=== PATIENT | male | born 1955 | race Caucasian/White ===

== ENCOUNTER 2020-06-02 09:19 | Inpatient (IN) ==
[2020-06-02] MEDS ORDERED: CeFAZolin Syr 2,000MG/20 ML 2,000 MG/20 ML SYRINGE IVPB ONE (09:55)
[2020-06-02] MEDS ORDERED: *HR* Succinylcholine 200 MG/10 ML VIAL IVP ONE (09:59)
[2020-06-02] MEDS ORDERED: Ondansetron 4 MG/2 ML VIAL ONE (09:59)
[2020-06-02] MEDS ORDERED: Lidocaine -MPF 2% 2 ML VIAL ONE (09:59)
[2020-06-02] MEDS ORDERED: *HR* Propofol 200 MG/20 ML VIAL IVP ONE (10:00)
[2020-06-02] MEDS ORDERED: Ringers Solution, Lactated 1,000 ML IVC SCH (10:00)
[2020-06-02] MEDS ORDERED: *HR* Midazolam HCl 2 MG/2 ML VIAL ONE (10:00)
[2020-06-02] MEDS ORDERED: Lidocaine HCL 4 ML Topical Solution (Laryng-O-Jet Kit Sterile Pak) TP ONE (10:00)
[2020-06-02] MEDS ORDERED: *HR* FentaNYL (PF) 100 MCG/2 ML VIAL ONE (10:00)
[2020-06-02] MEDS ORDERED: *HR* HYDROmorphone PF 0.5 MG/0.5 ML SYRINGE IVP PRN (10:03)
[2020-06-02] MEDS ORDERED: Ondansetron 4 MG/2 ML VIAL IVP PRN ×2 (10:03→19:34)
[2020-06-02] MEDS ORDERED: *HR* OxyCODONE Immed Rel 5 MG TABLET PO PRN ×3 (10:03→19:34)
[2020-06-02] MEDS ORDERED: Promethazine 6.25 MG in Water for inj. (sterile) 20 ML IVPB PRN (10:03)
[2020-06-02] MEDS ORDERED: *HR* Remifentanil 2 MG VIAL IVP ONE (10:07)
[2020-06-02] MEDS ORDERED: *HR* Heparin 5,000 UNIT/ML VIAL ONE ×2 (10:08→15:48)
[2020-06-02] MEDS ORDERED: Famotidine 20 MG/2 ML VIAL IVP ONE (10:29)
[2020-06-02] MEDS ORDERED: ceFAZolin 1,000 MG, Sodium Chloride IRRigation 1,000 ML IR ONE (11:20)
[2020-06-02] MEDS ORDERED: Heparin 1,000 UNITS/500 mL 1,500 ML ONE ×2 (12:22→13:45)
[2020-06-02] MEDS ORDERED: Isovue-300 50ML VIAL ONE ×2 (12:50→17:06)
[2020-06-02] MEDS ORDERED: Heparin 1,000 UNITS/500 mL 500 ML ONE ×3 (13:32→17:06)
[2020-06-02] MEDS ORDERED: EPHEDrine 50 MG/ML VIAL ONE (14:51)
[2020-06-02] MEDS ORDERED: *HR* Phenylephrine 10 MG/ML VIAL ONE (15:27)
[2020-06-02] MEDS ORDERED: *HR* Remifentanil 1 MG VIAL IVP ONE (15:51)
[2020-06-02] MEDS ORDERED: *HR* HYDROcodone/Acet 5/325 mg TABLET PO PRN (19:34)
[2020-06-02] MEDS ORDERED: Acetaminophen 325 MG TABLET PO PRN (19:34)
[2020-06-02] MEDS ORDERED: Naloxone 0.4 MG/ML INJ IVP PRN (19:34)
[2020-06-02] MEDS ORDERED: *HR* Labetalol 20 MG/4 ML SYRINGE IVP PRN (19:34)
[2020-06-02] MEDS: CeFAZolin 2 GM/120 ML BAG IVPB SCH (23:24)
[2020-06-03 01:26] LABS: Basophils % 0.2 %; Hematocrit 38.6 % (37.5-50.1); Immature Granulocytes % 0.2 % (0-4); Lymphocytes # 0.9 K/mcL (0.6-4.6); Lymphocytes % 7.3 %; Mean Corpuscular HGB Conc 35.2 g/dL (31.6-35.5); Mean Corpuscular Hemoglobin 33.7 pg (28.0-33.3); Mean Corpuscular Volume 95.8 fL (83.0-100.0); Mean Platelet Volume 10.5 fL (9.4-12.4); Monocytes # 0.6 K/mcL (0.0-1.3); Monocytes % 5.1 %; Platelet Count 216 K/mcL (140-400); Red Blood Count 4.03 M/mcL (4.19-5.50); Red Cell Distribution Width 12.7 % (11.5-14.5); Segmented Neutrophils % 87.2 %; White Blood Count 12.7 K/mcL (4.3-11.1)
[2020-06-03 01:29] LABS: Hemoglobin 13.6 g/dL (12.9-16.9)
[2020-06-03 01:45] LABS: BUN/Creatinine Ratio 16 (6-26); Blood Urea Nitrogen 21 mg/dL (8-23); Calcium 8.9 mg/dL (8.6-10.3); Carbon Dioxide 22 mEq/L (23-29); Chloride 104 mEq/L (98-107); Glucose 131 mg/dL (70-105); Osmolality,Calculated 287 (280-300); Potassium 3.3 mEq/L (3.5-5.1); Sodium 136 mEq/L (136-145); eGFR For African Americans > 60 (> 60); eGFR For Non-African Americans 56 (> 60)
[2020-06-03] MEDS: CeFAZolin 2 GM/120 ML BAG IVPB SCH ×2 (08:21→15:00)
[2020-06-03] MEDS ORDERED: carvediloL 25 MG TABLET PO SCH (09:00)
[2020-06-03] MEDS ORDERED: amLODIPine 5 MG TABLET PO SCH (09:00)
[2020-06-03] MEDS ORDERED: Potassium Chloride Elixir 20 MEQ/15 ML UDC PO ONE (14:43)
[2020-06-03 16:12] VITALS: BP 122/75
[2020-06-03] MEDS ORDERED: carvediloL 6.25 MG TABLET PO SCH (18:00)
== END 2020-06-03 18:50 | disposition home or self-care (01) | DRG 272 ==
LOC: SAMDAY 09:19 → 2NNU 20:44
PROVIDERS: ADMIT Surgery Vascular Surgery; ATTEND Surgery Vascular Surgery

== ENCOUNTER 2021-04-15 05:29 | Inpatient (IN) ==
[2021-04-15 06:53] LABS: Basophils # 0.1 K/mcL (0.0-0.2); Eosinophils # 0.6 K/mcL (0.0-0.6); Hematocrit 47.2 % (37.5-50.1); Hemoglobin 16.3 g/dL (12.9-16.9); Immature Granulocytes % 0.4 % (0-4); Lymphocytes # 1.6 K/mcL (0.6-4.6); Lymphocytes % 15.3 %; Mean Corpuscular HGB Conc 34.5 g/dL (31.6-35.5); Mean Corpuscular Hemoglobin 32.8 pg (28.0-33.3); Mean Platelet Volume 10.5 fL (9.4-12.4); Monocytes # 0.7 K/mcL (0.0-1.3); Monocytes % 6.4 %; Neutrophils # 7.4 K/mcL (1.6-8.9); Platelet Count 266 K/mcL (140-400); Red Blood Count 4.97 M/mcL (4.19-5.50); Red Cell Distribution Width 12.5 % (11.5-14.5); Segmented Neutrophils % 70.9 %; White Blood Count 10.4 K/mcL (4.3-11.1)
[2021-04-15 07:14] LABS: Calcium 9.9 mg/dL (8.6-10.3); Potassium 3.4 mEq/L (3.5-5.1)
[2021-04-15] MEDS ORDERED: *HR* Heparin 5,000 UNIT/ML VIAL IVP ONE (07:35)
[2021-04-15] MEDS ORDERED: *HR* Heparin 5,000 UNIT/ML VIAL IVP PRN ×3 (07:35→18:27)
[2021-04-15] MEDS ORDERED: Heparin 25,000UNIT/250ML 1/2NS 25,000 UNIT/250 ML IV.SOLN IVC SCH (07:45)
[2021-04-15 07:59] LABS: INR 1.1; Prothrombin Time 12.2 Seconds (9.4-12.1)
[2021-04-15 08:02] LABS: Activated Partial Thrombo Time 38.9 Seconds (26.0-36.0)
[2021-04-15] MEDS ORDERED: Naloxone 0.4 MG/ML INJ IVP PRN ×3 (08:37→18:27)
[2021-04-15] MEDS ORDERED: Melatonin 3 MG TABLET PO PRN ×2 (08:37→18:27)
[2021-04-15] MEDS ORDERED: amLODIPine 5 MG TABLET PO SCH (09:00)
[2021-04-15] MEDS ORDERED: CeFAZolin 2,000 MG/120 ML BAG IVPB ONE (09:56)
[2021-04-15] MEDS ORDERED: *HR* HYDROmorphone PF 0.5 MG/0.5 ML SYRINGE IVP PRN ×2 (11:25→18:27)
[2021-04-15] MEDS ORDERED: *HR* Remifentanil 1 MG VIAL IVP ONE (11:35)
[2021-04-15] MEDS ORDERED: Ondansetron 4 MG/2 ML VIAL ONE (11:38)
[2021-04-15] MEDS ORDERED: *HR* Rocuronium Bromide 50 MG/5 ML VIAL ONE ×3 (11:38→16:06)
[2021-04-15] MEDS ORDERED: Lidocaine HCL 4 ML Topical Solution (Laryng-O-Jet Kit Sterile Pak) TP ONE (11:38)
[2021-04-15] MEDS ORDERED: *HR* Propofol 200 MG/20 ML VIAL IVP ONE (11:38)
[2021-04-15] MEDS ORDERED: Lidocaine -MPF 2% 5 ML VIAL ONE (11:38)
[2021-04-15] MEDS ORDERED: *HR* Midazolam HCl 2 MG/2 ML VIAL ONE (11:38)
[2021-04-15] MEDS ORDERED: Heparin 1,000 UNITS/500 mL 500 ML ONE (12:54)
[2021-04-15] MEDS ORDERED: Protamine Sulfate 50 MG/5 ML VIAL IVP ONE (12:54)
[2021-04-15] MEDS ORDERED: *HR* FentaNYL (PF) 100 MCG/2 ML VIAL ONE (13:52)
[2021-04-15] MEDS ORDERED: Dexmedetomidine HCl 400 MCG/100 ML MLS IVC ONE (13:56)
[2021-04-15 14:16] LABS: ABG Base Excess -1 mEq/L (-2 to 3); ABG Chloride 96 mEq/L (98-107); ABG Glucose 272 mg/dL (60-95); ABG HCO3 24 mEq/L (21-27); ABG Ionized Calcium 1.17 mmol/L (1.15-1.35); ABG Oxygen Saturation 92 % (95-98); ABG PCO2 39 mmHg (35-45); ABG PO2 64 mmHg (85-104); ABG TCO2 25 mEq/L (20-26)
[2021-04-15] MEDS ORDERED: Sugammadex Sodium 200 MG/2 ML VIAL IV ONE (16:06)
[2021-04-15] MEDS ORDERED: *HR* HYDROMORPHONE 2 MG/ML VIAL ONE (16:59)
[2021-04-15] MEDS ORDERED: Ondansetron 4 MG/2 ML VIAL IVP PRN (18:27)
[2021-04-15] MEDS ORDERED: *HR* Labetalol 20 MG/4 ML SYRINGE IVP PRN (18:27)
[2021-04-15] MEDS ORDERED: Acetaminophen 325 MG TABLET PO PRN (18:27)
[2021-04-15] MEDS: Gabapentin 300 MG CAPSULE PO SCH ×2 (18:29→20:07)
[2021-04-16] MEDS: CeFAZolin 2 GM/120 ML BAG IVPB SCH ×3 (00:14→16:43)
[2021-04-16] MEDS: Heparin 25,000UNIT/250ML 1/2NS 25,000 UNIT/250 ML IV.SOLN IVC SCH (04:00)
[2021-04-16] MEDS: *HR* HYDROcodone/Acet 5/325 mg TABLET PO PRN ×2 (05:22→17:18)
[2021-04-16] MEDS: Gabapentin 300 MG CAPSULE PO SCH ×3 (08:40→21:10)
[2021-04-16] MEDS: amLODIPine 5 MG TABLET PO SCH (08:40)
[2021-04-16 09:46] LABS: Basophils % 0.1 %; Hematocrit 39.5 % (37.5-50.1); Immature Granulocytes % 0.4 % (0-4); Lymphocytes # 1.1 K/mcL (0.6-4.6); Lymphocytes % 7.7 %; Mean Corpuscular HGB Conc 34.2 g/dL (31.6-35.5); Mean Corpuscular Hemoglobin 33.3 pg (28.0-33.3); Mean Corpuscular Volume 97.3 fL (83.0-100.0); Mean Platelet Volume 10.8 fL (9.4-12.4); Monocytes # 0.7 K/mcL (0.0-1.3); Neutrophils # 12.8 K/mcL (1.6-8.9); Platelet Count 218 K/mcL (140-400); Red Blood Count 4.06 M/mcL (4.19-5.50); Red Cell Distribution Width 12.5 % (11.5-14.5); Segmented Neutrophils % 86.8 %; White Blood Count 14.7 K/mcL (4.3-11.1)
[2021-04-16 09:55] LABS: Hemoglobin 13.5 g/dL (12.9-16.9)
[2021-04-16 10:02] LABS: BUN/Creatinine Ratio 15 (6-26); Blood Urea Nitrogen 22 mg/dL (8-23); Calcium 8.5 mg/dL (8.6-10.3); Carbon Dioxide 23 mEq/L (23-29); Chloride 102 mEq/L (98-107); Glucose 139 mg/dL (70-105); Osmolality,Calculated 284 (280-300); Potassium 3.9 mEq/L (3.5-5.1); Sodium 134 mEq/L (136-145); eGFR For African Americans > 60 (> 60); eGFR For Non-African Americans 50 (> 60)
[2021-04-16] MEDS: *HR* Heparin 5,000 UNIT/ML VIAL IVP PRN (14:34)
[2021-04-17 02:17] LABS: Hematocrit 34.7 % (37.5-50.1); Hemoglobin 11.6 g/dL (12.9-16.9); Mean Corpuscular HGB Conc 33.4 g/dL (31.6-35.5); Mean Corpuscular Hemoglobin 32.9 pg (28.0-33.3); Mean Corpuscular Volume 98.3 fL (83.0-100.0); Mean Platelet Volume 10.9 fL (9.4-12.4); Platelet Count 180 K/mcL (140-400); Red Blood Count 3.53 M/mcL (4.19-5.50); Red Cell Distribution Width 12.9 % (11.5-14.5); White Blood Count 8.7 K/mcL (4.3-11.1)
[2021-04-17 02:32] LABS: BUN/Creatinine Ratio 17 (6-26); Blood Urea Nitrogen 22 mg/dL (8-23); Calcium 8.2 mg/dL (8.6-10.3); Carbon Dioxide 23 mEq/L (23-29); Chloride 109 mEq/L (98-107); Glucose 123 mg/dL (70-105); Magnesium 2.3 mg/dL (1.6-2.6); Osmolality,Calculated 283 (280-300); Phosphorous 2.4 mg/dL (2.7-4.5); Potassium 3.7 mEq/L (3.5-5.1); Sodium 134 mEq/L (136-145); eGFR For African Americans > 60 (> 60); eGFR For Non-African Americans 56 (> 60)
[2021-04-17] MEDS: *HR* OxyCODONE Immed Rel 5 MG TABLET PO PRN (02:41)
[2021-04-17] MEDS: Heparin 25,000UNIT/250ML 1/2NS 25,000 UNIT/250 ML IV.SOLN IVC SCH (02:47)
[2021-04-17] MEDS: *HR* HYDROcodone/Acet 5/325 mg TABLET PO PRN (03:49)
[2021-04-17] MEDS: Aspirin Enteric Coated 81 MG Tablet PO SCH (07:43)
[2021-04-17] MEDS: Gabapentin 300 MG CAPSULE PO SCH ×3 (07:43→19:36)
[2021-04-17] MEDS: amLODIPine 5 MG TABLET PO SCH (07:43)
[2021-04-17] MEDS: hydroCHLOROthiazide 25 MG TABLET PO SCH (07:45)
[2021-04-17] MEDS: Nicotine 21 MG PATCH.TD24 TD SCH (12:50)
[2021-04-18] MEDS: *HR* OxyCODONE Immed Rel 5 MG TABLET PO PRN (02:50)
[2021-04-18] MEDS: Heparin 25,000UNIT/250ML 1/2NS 25,000 UNIT/250 ML IV.SOLN IVC SCH (03:14)
[2021-04-18] MEDS: *HR* Heparin 5,000 UNIT/ML VIAL IVP PRN (03:14)
[2021-04-18] MEDS: *HR* HYDROcodone/Acet 5/325 mg TABLET PO PRN (05:17)
[2021-04-18] MEDS: Nicotine 21 MG PATCH.TD24 TD SCH (07:47)
[2021-04-18] MEDS: Gabapentin 300 MG CAPSULE PO SCH ×3 (07:47→19:47)
[2021-04-18] MEDS: amLODIPine 5 MG TABLET PO SCH (07:47)
[2021-04-18] MEDS: hydroCHLOROthiazide 25 MG TABLET PO SCH (07:47)
[2021-04-18] MEDS: Aspirin Enteric Coated 81 MG Tablet PO SCH (07:47)
[2021-04-18 09:44] LABS: Basophils # 0.1 K/mcL (0.0-0.2); Basophils % 0.8 %; Eosinophils # 0.6 K/mcL (0.0-0.6); Eosinophils % 7.7 %; Hematocrit 33.3 % (37.5-50.1); Hemoglobin 11.5 g/dL (12.9-16.9); Immature Granulocytes % 0.7 % (0-4); Lymphocytes % 27.3 %; Mean Corpuscular HGB Conc 34.5 g/dL (31.6-35.5); Mean Corpuscular Hemoglobin 33.8 pg (28.0-33.3); Mean Corpuscular Volume 97.9 fL (83.0-100.0); Mean Platelet Volume 11.2 fL (9.4-12.4); Monocytes # 0.5 K/mcL (0.0-1.3); Monocytes % 6.9 %; Neutrophils # 4.1 K/mcL (1.6-8.9); Platelet Count 182 K/mcL (140-400); Red Cell Distribution Width 12.7 % (11.5-14.5); Segmented Neutrophils % 56.6 %; White Blood Count 7.2 K/mcL (4.3-11.1)
[2021-04-18 10:02] LABS: BUN/Creatinine Ratio 14 (6-26); Blood Urea Nitrogen 18 mg/dL (8-23); Calcium 8.4 mg/dL (8.6-10.3); Carbon Dioxide 22 mEq/L (23-29); Chloride 102 mEq/L (98-107); Glucose 193 mg/dL (70-105); Osmolality,Calculated 285 (280-300); Potassium 3.2 mEq/L (3.5-5.1); Sodium 134 mEq/L (136-145); eGFR For African Americans > 60 (> 60); eGFR For Non-African Americans 55 (> 60)
[2021-04-19] MEDS: Heparin 25,000UNIT/250ML 1/2NS 25,000 UNIT/250 ML IV.SOLN IVC SCH ×3 (00:01→10:47)
[2021-04-19] MEDS: *HR* OxyCODONE Immed Rel 5 MG TABLET PO PRN (02:58)
[2021-04-19] MEDS: *HR* HYDROcodone/Acet 5/325 mg TABLET PO PRN (04:12)
[2021-04-19 05:14] LABS: Basophils # 0.1 K/mcL (0.0-0.2); Basophils % 0.9 %; Eosinophils # 0.8 K/mcL (0.0-0.6); Eosinophils % 9.6 %; Hematocrit 36.6 % (37.5-50.1); Hemoglobin 12.8 g/dL (12.9-16.9); Immature Granulocytes % 0.6 % (0-4); Lymphocytes # 1.7 K/mcL (0.6-4.6); Lymphocytes % 20.2 %; Mean Corpuscular Hemoglobin 33.7 pg (28.0-33.3); Mean Corpuscular Volume 96.3 fL (83.0-100.0); Mean Platelet Volume 11.6 fL (9.4-12.4); Monocytes # 0.7 K/mcL (0.0-1.3); Monocytes % 8.3 %; Neutrophils # 5.2 K/mcL (1.6-8.9); Nucleated Red Blood Cells 0.2 /100 WBC (0); Platelet Count 223 K/mcL (140-400); Red Cell Distribution Width 12.7 % (11.5-14.5); Segmented Neutrophils % 60.4 %; White Blood Count 8.6 K/mcL (4.3-11.1)
[2021-04-19 05:40] LABS: BUN/Creatinine Ratio 15 (6-26); Blood Urea Nitrogen 21 mg/dL (8-23); Calcium 9.6 mg/dL (8.6-10.3); Carbon Dioxide 23 mEq/L (23-29); Chloride 102 mEq/L (98-107); Glucose 114 mg/dL (70-105); Osmolality,Calculated 284 (280-300); Potassium 3.7 mEq/L (3.5-5.1); Sodium 135 mEq/L (136-145); eGFR For African Americans > 60 (> 60); eGFR For Non-African Americans 50 (> 60)
[2021-04-19] MEDS: Aspirin Enteric Coated 81 MG Tablet PO SCH (09:02)
[2021-04-19] MEDS: amLODIPine 5 MG TABLET PO SCH (09:03)
[2021-04-19] MEDS: hydroCHLOROthiazide 25 MG TABLET PO SCH (09:03)
[2021-04-19] MEDS: Gabapentin 300 MG CAPSULE PO SCH ×3 (09:03→20:31)
[2021-04-19] MEDS: Nicotine 21 MG PATCH.TD24 TD SCH (09:03)
[2021-04-20 06:23] LABS: Basophils # 0.1 K/mcL (0.0-0.2); Basophils % 0.5 %; Eosinophils # 0.8 K/mcL (0.0-0.6); Eosinophils % 8.4 %; Hematocrit 39.4 % (37.5-50.1); Immature Granulocytes % 0.7 % (0-4); Lymphocytes # 2.1 K/mcL (0.6-4.6); Lymphocytes % 22.5 %; Mean Corpuscular HGB Conc 35.5 g/dL (31.6-35.5); Mean Corpuscular Hemoglobin 33.8 pg (28.0-33.3); Mean Corpuscular Volume 95.2 fL (83.0-100.0); Mean Platelet Volume 10.9 fL (9.4-12.4); Monocytes # 0.8 K/mcL (0.0-1.3); Neutrophils # 5.7 K/mcL (1.6-8.9); Nucleated Red Blood Cells 0.2 /100 WBC (0); Platelet Count 245 K/mcL (140-400); Red Blood Count 4.14 M/mcL (4.19-5.50); Red Cell Distribution Width 12.8 % (11.5-14.5); Segmented Neutrophils % 59.9 %; White Blood Count 9.5 K/mcL (4.3-11.1)
[2021-04-20 06:51] LABS: Calcium 9.8 mg/dL (8.6-10.3)
[2021-04-20] MEDS: Heparin 25,000UNIT/250ML 1/2NS 25,000 UNIT/250 ML IV.SOLN IVC SCH (07:11)
[2021-04-20] MEDS ORDERED: *HR* Midazolam HCl 2 MG/2 ML VIAL ONE (07:12)
[2021-04-20] MEDS ORDERED: *HR* FentaNYL (PF) 100 MCG/2 ML VIAL ONE ×2 (07:12→09:41)
[2021-04-20] MEDS ORDERED: *HR* Propofol 200 MG/20 ML VIAL IVP ONE (07:12)
[2021-04-20] MEDS ORDERED: Lidocaine -MPF 2% 5 ML VIAL ONE (07:14)
[2021-04-20] MEDS ORDERED: *HR* Rocuronium Bromide 50 MG/5 ML VIAL ONE ×3 (07:14→10:55)
[2021-04-20] MEDS ORDERED: *HR* Succinylcholine 200 MG/10 ML VIAL IVP ONE (07:14)
[2021-04-20] MEDS: hydroCHLOROthiazide 25 MG TABLET PO SCH (07:19)
[2021-04-20] MEDS: Aspirin Enteric Coated 81 MG Tablet PO SCH (07:19)
[2021-04-20] MEDS: Nicotine 21 MG PATCH.TD24 TD SCH (07:19)
[2021-04-20] MEDS: Gabapentin 300 MG CAPSULE PO SCH ×3 (07:19→20:41)
[2021-04-20] MEDS: amLODIPine 5 MG TABLET PO SCH (07:19)
[2021-04-20] MEDS ORDERED: Heparin 1,000 UNITS/500 mL 1,000 ML ONE (07:22)
[2021-04-20] MEDS ORDERED: *HR* Promethazine 25 MG/ML VIAL IVPB PRN ×2 (07:23→17:57)
[2021-04-20] MEDS ORDERED: *HR* HYDROmorphone (PF) 1 MG/ML SYRINGE IVP PRN ×2 (07:23→17:57)
[2021-04-20] MEDS ORDERED: *HR* HYDROmorphone 2 MG TABLET PO PRN ×2 (07:23→17:57)
[2021-04-20] MEDS ORDERED: Acetaminophen IV 1,000 MG/100 ML BAG IVPB ONE ×2 (07:23→08:49)
[2021-04-20] MEDS ORDERED: Famotidine 20 MG/2 ML VIAL IVP ONE (07:23)
[2021-04-20] MEDS ORDERED: *HR* OxyCODONE Immed Rel 5 MG TABLET PO PRN ×3 (07:23→17:57)
[2021-04-20] MEDS ORDERED: *HR* Labetalol 20 MG/4 ML SYRINGE IVP PRN ×3 (07:23→17:57)
[2021-04-20] MEDS ORDERED: Pregabalin 75 MG CAPSULE PO ONE (07:23)
[2021-04-20] MEDS ORDERED: Ketamine HCL *QUVA* 50mg (1mL) SYRINGE ONE (07:30)
[2021-04-20] MEDS ORDERED: CeFAZolin Syr 2,000MG/20 ML 2,000 MG/20 ML SYRINGE IVPB ONE (07:30)
[2021-04-20] MEDS ORDERED: *HR* Vasopressin 20 UNIT/ML VIAL ONE (07:31)
[2021-04-20] MEDS ORDERED: Heparin 1,000 UNITS/500 mL 500 ML ONE (07:33)
[2021-04-20] MEDS ORDERED: ceFAZolin 1,000 MG, Sodium Chloride IRRigation 1,000 ML IR ONE (07:45)
[2021-04-20] MEDS ORDERED: Ondansetron 4 MG/2 ML VIAL ONE ×2 (08:00→13:27)
[2021-04-20] MEDS ORDERED: EPHEDrine 50 MG/ML VIAL ONE (08:05)
[2021-04-20] MEDS ORDERED: 0.9 % Sodium Chloride 1,000 ML IVC SCH (09:00)
[2021-04-20] MEDS ORDERED: *HR* Heparin 5,000 UNIT/ML VIAL ONE ×2 (10:45→11:10)
[2021-04-20] MEDS ORDERED: Heparin 25,000UNIT/250ML 1/2NS 25,000 UNIT/250 ML IV.SOLN ONE (10:57)
[2021-04-20] MEDS ORDERED: *HR* HYDROMORPHONE 2 MG/ML VIAL ONE (11:23)
[2021-04-20] MEDS ORDERED: Sugammadex Sodium 200 MG/2 ML VIAL IV ONE (13:27)
[2021-04-20] MEDS ORDERED: *HR* Labetalol 20 MG/4 ML SYRINGE IVP ONE (14:56)
[2021-04-20 15:37] LABS: Sodium, Urine 43.2 mEq/L
[2021-04-20] MEDS ORDERED: Water for inj. (sterile) 20 ML ONE (16:06)
[2021-04-20] MEDS ORDERED: Ondansetron 4 MG/2 ML VIAL IVP ONE (17:10)
[2021-04-20] MEDS ORDERED: Acetaminophen 325 MG TABLET PO PRN (17:57)
[2021-04-20] MEDS ORDERED: Naloxone 0.4 MG/ML INJ IVP PRN ×2 (17:57)
[2021-04-20] MEDS ORDERED: *HR* Heparin 5,000 UNIT/ML VIAL IVP PRN ×2 (17:57)
[2021-04-20] MEDS ORDERED: Ondansetron 4 MG/2 ML VIAL IVP PRN (17:57)
[2021-04-20] MEDS ORDERED: Melatonin 3 MG TABLET PO PRN (17:57)
[2021-04-20] MEDS: 0.9 % Sodium Chloride 1,000 ML IVC SCH (18:04)
[2021-04-20] MEDS: CeFAZolin 2 GM/120 ML BAG IVPB SCH (18:51)
[2021-04-21 01:31] LABS: Basophils % 0.1 %; Hematocrit 31.4 % (37.5-50.1); Immature Granulocytes % 0.5 % (0-4); Lymphocytes # 0.9 K/mcL (0.6-4.6); Lymphocytes % 6.2 %; Mean Corpuscular HGB Conc 33.8 g/dL (31.6-35.5); Mean Corpuscular Hemoglobin 32.8 pg (28.0-33.3); Mean Corpuscular Volume 97.2 fL (83.0-100.0); Mean Platelet Volume 10.3 fL (9.4-12.4); Monocytes # 0.8 K/mcL (0.0-1.3); Monocytes % 5.1 %; Neutrophils # 13.1 K/mcL (1.6-8.9); Platelet Count 185 K/mcL (140-400); Red Blood Count 3.23 M/mcL (4.19-5.50); Segmented Neutrophils % 88.1 %
[2021-04-21 01:32] LABS: Hemoglobin 10.6 g/dL (12.9-16.9); White Blood Count 14.9 K/mcL (4.3-11.1)
[2021-04-21 01:41] LABS: Calcium 8.2 mg/dL (8.6-10.3); Potassium 4.7 mEq/L (3.5-5.1)
[2021-04-21] MEDS: CeFAZolin 2 GM/120 ML BAG IVPB SCH ×2 (03:00→11:20)
[2021-04-21] MEDS: 0.9 % Sodium Chloride 1,000 ML IVC SCH (03:25)
[2021-04-21] MEDS: Gabapentin 300 MG CAPSULE PO SCH ×3 (08:35→20:18)
[2021-04-21] MEDS: Aspirin Enteric Coated 81 MG Tablet PO SCH (08:35)
[2021-04-21] MEDS: Nicotine 21 MG PATCH.TD24 TD SCH (08:36)
[2021-04-21] MEDS: amLODIPine 5 MG TABLET PO SCH (08:36)
[2021-04-21] MEDS: Heparin 25,000UNIT/250ML 1/2NS 25,000 UNIT/250 ML IV.SOLN IVC SCH ×3 (08:39→21:42)
[2021-04-21 08:53] LABS: VBG Ionized Calcium 1.14 mmol/L (1.15-1.35)
[2021-04-21] MEDS: *HR* HYDROcodone/Acet 5/325 mg TABLET PO PRN (11:21)
[2021-04-21 12:19] LABS: Bilirubin,Urine Negative (Negative); Blood,Urine Negative (Negative); Clarity,Urine Clear (Clear); Color,Urine Colorless (Yellow); Glucose,Urine (UA) Normal (Normal); Ketones,Urine Negative (Negative); Leukocyte Esterase,Urine Negative (Negative); Nitrite,Urine Negative (Negative); PH,Urine 6.5 pH Units (5.0-8.0); Protein,Urine Negative (Neg-Trace); Specific Gravity,Urine 1.015 (1.010-1.025); Urobilinogen,Urine Normal (Normal)
[2021-04-22] MEDS: Heparin 25,000UNIT/250ML 1/2NS 25,000 UNIT/250 ML IV.SOLN IVC SCH (05:19)
[2021-04-22 08:42] LABS: Basophils # 0.1 K/mcL (0.0-0.2); Basophils % 0.6 %; Eosinophils # 0.3 K/mcL (0.0-0.6); Eosinophils % 2.7 %; Hematocrit 31.9 % (37.5-50.1); Hemoglobin 10.4 g/dL (12.9-16.9); Immature Granulocytes % 1.2 % (0-4); Lymphocytes % 19.2 %; Mean Corpuscular HGB Conc 32.6 g/dL (31.6-35.5); Mean Corpuscular Hemoglobin 32.7 pg (28.0-33.3); Mean Corpuscular Volume 100.3 fL (83.0-100.0); Mean Platelet Volume 10.8 fL (9.4-12.4); Monocytes % 9.6 %; Neutrophils # 6.8 K/mcL (1.6-8.9); Platelet Count 194 K/mcL (140-400); Red Blood Count 3.18 M/mcL (4.19-5.50); Red Cell Distribution Width 13.2 % (11.5-14.5); Segmented Neutrophils % 66.7 %; White Blood Count 10.2 K/mcL (4.3-11.1)
[2021-04-22 08:58] LABS: BUN/Creatinine Ratio 18 (6-26); Blood Urea Nitrogen 23 mg/dL (8-23); Calcium 8.5 mg/dL (8.6-10.3); Carbon Dioxide 25 mEq/L (23-29); Chloride 105 mEq/L (98-107); Glucose 102 mg/dL (70-105); Osmolality,Calculated 286 (280-300); Potassium 3.9 mEq/L (3.5-5.1); Sodium 136 mEq/L (136-145); eGFR For African Americans > 60 (> 60); eGFR For Non-African Americans 58 (> 60)
[2021-04-22] MEDS: Nicotine 21 MG PATCH.TD24 TD SCH (09:19)
[2021-04-22] MEDS: Aspirin Enteric Coated 81 MG Tablet PO SCH (09:20)
[2021-04-22] MEDS: amLODIPine 5 MG TABLET PO SCH (09:20)
[2021-04-22] MEDS: Gabapentin 300 MG CAPSULE PO SCH ×2 (09:20→15:56)
[2021-04-22 14:43] VITALS: BP 139/78; PULSE 76; TEMP 98; O2SAT 98
[2021-04-22] MEDS: *HR* HYDROcodone/Acet 5/325 mg TABLET PO PRN (15:56)
[2021-04-22] MEDS ORDERED: Apixaban 5 MG TABLET PO ONE (17:00)
== END 2021-04-22 17:24 | disposition home health service (06) | DRG 253 ==
LOC: EMEROOARM 05:29 → 2NNU 11:16 → SUATTDRO 11:52 → 2NNU 11:52 → 3ANU 04-21 20:40
PROVIDERS: ADMIT Internal Medicine; ATTEND Internal Medicine